=== PATIENT | female | born 1960 | race Asian ===

== ENCOUNTER 2018-11-03 11:55 | Emergency (ER) | payer OTHER ==
[~2018-11-03] VITALS: Ht 157.5 cm; Wt 63.5 kg
[~2018-11-03 11:55] MED LIST: ACYC800T5 PO; IBUP-1561 PO; LOSARTAN; RANITIDINE; TRAM50TA2 PO
[2018-11-03 11:58] VITALS: BP 14/81; PULSE 94; RESP 18; Ht 157.5 cm; Wt 63.5 kg
== END 2018-11-03 14:13 | disposition home or self-care (01) ==
LOC: FTE 11:55
DX: B02.9 Zoster without complications (principal); I10 Essential (primary) hypertension
CPT/HCPCS: 99283